=== PATIENT | male | born 1980 | race Caucasian/White ===

== ENCOUNTER 2021-03-20 03:25 | Emergency (ER) | payer OTHER, SELFPAY ==
[2021-03-20 03:31] VITALS: BP 130/96; PULSE 110; RESP 22; TEMP 37.3; O2SAT 98; BMI 21.5
[2021-03-20 03:52] VITALS: BP 137/91; PULSE 96; PULSE 98; RESP 17; O2SAT 97
--- NOTE | 2021-03-20 04:40 | PC.NURSE ---
Neva Arzola, turpentine farmer made aware that pt is SI and needs 1:1 sitter. Pt moved to 6H per turpentine farmer and report given to Lorraine Ruano RN.
--- NOTE | 2021-03-20 05:06 | ED.PSYCH ---
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 this morning. Patient states that he suffers from depression and anxiety and states that for the past week his not showed up to work because he just could not leave his room. He states he is been drinking and that yesterday he was trying to figure out a way to kill himself and attempted to do so by using meth. Patient denies any recent triggers that he can recall. Patient states that he wants to kill himself. Related Data Allergies Allergy/AdvReac Type Severity Reaction Status Date / Time disulfiram [From Antabuse] AdvReac Drowsy Verified 03/20/21 03:50 Review of Systems Review of Systems: Pertinent positives and negatives as stated in HPI and 10 point review of systems is otherwise negative. PMFSH Past Medical History Source: nursing notes reviewed Social History Social History Alcohol intake: current Alcohol intake frequency: 3 or more drinks per day Patient Tobacco Use Status: Former Tobacco user Use of substances other than those prescribed or required for medical reasons: Yes Substance Use Type: Amphetamines and Marijuana Physical Exam Vital Signs: Vital Signs: Last Vital Signs Temp 99.2 F 03/20/21 03:31 Pulse 96 03/20/21 03:52 Resp 17 03/20/21 03:52 BP 137/91 H 03/20/21 03:52 Pulse Ox 97 03/20/21 03:52 Body Mass Index 21.5 VITAL SIGNS: Reviewed. GENERAL: Well developed, well nourished, in no acute distress. HEAD: Normocephalic/atraumatic EYES: PERRLA, EOMI OROPHARYNX: no oral lesions noted, posterior pharynx clear LUNGS: Normal breath sounds. No adventitious sounds or accessory muscle use. SpO2<97> CARDIOVASCULAR: Regular rate and rhythm without noted murmurs ABDOMEN: Soft, non-tender, non-distended with bowel sounds. NEUROLOGIC: Alert and oriented x 4. PSYCH: Depressed affect, anxiety Course Course Course Narrative: This is a 40-year-old male with history and clinical presentation consistent with suicide attempt and suicidal ideation as well as significant depression. Review of all investigations demonstrates positivity for meth and marijuana and otherwise BAL is undetectable. Patient is otherwise medically cleared for further evaluation by the behavioral team. Reevaluation(s) Reevaluation #1: Patient placed in physician observation because the patient needed more time for evaluation by the behavioral team. At the time observation was started the patient's vital signs were stable, patient is alert and oriented, neuro: Nonfocal, CV RRR, lungs clear Time: 06:23 MDM - Psych Lab Data Labs: Lab Results 03/20/21 03/20/21 Range/Units 05:35 05:48 Urine Opiates Screen Not Detected (Not Detect) Ur Barbiturates Screen Not Detected (Not Detect) Ur Phencyclidine Scrn Not Detected (Not Detect) Ur Amphetamines Screen POSITIVE H (Not Detect) U Benzodiazepines Scrn Not Detected (Not Detect) Urine Cocaine Screen Not Detected (Not Detect) U Marijuana (THC) Screen POSITIVE H (Not Detect) Ethyl Alcohol < 10 mg/dL ECG Data Attestation: I personally reviewed and interpreted this ECG as follows: Prior ECG tracings: not available for review Interpretation: Normal sinus rhythm, HR -90, no evidence of acute ischemia, [place]/QRS/QTC are within normal limits.
[2021-03-20] MEDS: hydrOXYzine HCL 25 MG TABLET PO (05:41)
[2021-03-20 06:00] VITALS: BP 112/67; PULSE 74; RESP 16; TEMP 36.9; O2SAT 98
[2021-03-20 06:07] LABS: Ethanol < 10 mg/dL
[2021-03-20 06:11] LABS: Amphetamine Screen Urine POSITIVE (Not Detect); Barbiturates, Urine Not Detected (Not Detect); Benzodiazepines Screen Urine Not Detected (Not Detect); Cannabinoid Screen Urine POSITIVE (Not Detect); Cocaine Screen Urine Not Detected (Not Detect); Opiate Screen Urine Not Detected (Not Detect); Phencyclidine Screen Urine Not Detected (Not Detect)
--- NOTE | 2021-03-20 06:15 | PC.NURSE ---
Faxed to [facility]. Awaiting consultation. Pt calm/cooperative at this time, medicated as ordered with Hydroxizine 25mg. Will continue to monitor.
--- NOTE | 2021-03-20 06:39 | PC.NURSE ---
Section [address] .
--- NOTE | 2021-03-20 06:55 | ECG_ITS ---
Test Reason : CHEST PAIN Blood Pressure : / mmHG Vent. Rate : 090 BPM Atrial Rate : 090 BPM P-R Int : 136 ms QRS Dur : 082 ms QT Int : 360 ms P-R-T Axes : 043 029 042 degrees QTc Int : 440 ms Normal sinus rhythm Normal ECG No previous ECGs available Referred By: Gina Venegas Electronically Signed By:Juvenal Matute
[2021-03-20 06:56] LABS: COVID-19 Test Negative (Negative); IDNOW Serial# 9DD0AD1C
[2021-03-20 11:56] LABS: MANUAL DIFF FLAG NO
[2021-03-20 11:57] LABS: Basophils Percent Auto 0.6 % (0-2); Eosinophils Absolute Auto 0.1 X10*3/uL (0.0-0.4); Hematocrit 45.1 % (42-52); Hemoglobin 15.8 g/dl (14.0-18.0); Imm Gran Abs Auto 0.02 X10*3/uL (0.00-0.03); Imm Gran Pct Auto 0.3 % (0.0-0.4); Lymphocytes Absolute Auto 2.9 X10*3/uL (1.2-4.9); Lymphocytes Percent Auto 42.5 % (20-40); Mean Corpuscular Hemoglobin 31.1 pg (27.0-33.0); Mean Corpuscular Volume 88.8 fL (80-98); Mean Platelet Volume 8.3 fL (9.4-12.4); Monocytes Percent Auto 14.1 % (2-11); Neutrophils Absolute Auto 2.8 X10*3/uL (2.0-8.3); Neutrophils Percent Auto 40.5 % (45-73); Platelet Count 266 X10*3/uL (160-400); Red Blood Count 5.08 X10*6/uL (4.60-5.80); Red Cell Distribution Width 11.9 % (11.0-16.0); White Blood Count 6.9 X10*3/uL (4.8-10.8)
[2021-03-20 12:30] LABS: Alanine Aminotransferase 157 U/L (0-40); Albumin Level 4.5 g/dL (3.5-5.0); Alkaline Phosphatase 60 U/L (39-117); Anion Gap 10 (12-20); Aspartate Amino Transferase 82 U/L (5-37); Bilirubin Direct 0.4 mg/dL (0.0-0.5); Bilirubin Total 1.2 mg/dL (0.0-1.0); Blood Urea Nitrogen 19 mg/dL (9-16); Calcium 9.8 mg/dL (8.4-10.2); Carbon Dioxide 30 mmol/L (22-29); Chloride 104 mmol/L (96-108); Creatinine Clr Calc Pharmacy 117.8; Estimated Glomerular Filt Rate > 60; Glucose Random 90 mg/dL (60-115); Potassium 4.1 mmol/L (3.3-5.1); Sodium 140 mmol/L (135-145); Total Protein 6.8 g/dL (6.5-8.0)
[2021-03-20 13:13] VITALS: BP 114/68; PULSE 91; RESP 18; TEMP 36.6; O2SAT 99
--- NOTE | 2021-03-20 15:58 | MHC.CARE ---
Pt accepted [facility]
== END 2021-03-20 17:24 ==
PROVIDERS: Emergency Medicine; Emergency Provider Student in an Organized Health Care Education/Training Program; PCP Family Medicine
DX: F32.9 Major depressive disorder, single episode, unspecified (principal); R45.851 Suicidal ideations; F41.9 Anxiety disorder, unspecified; F12.90 Cannabis use, unspecified, uncomplicated; Z20.822 Contact with and (suspected) exposure to COVID-19
CPT/HCPCS: 36415; 80048; 80076; 80307; 82077; 85025; 87635; 93005; 99285